=== PATIENT | female | born 1985 | race Two or more races ===

== ENCOUNTER 2017-02-11 12:31 | Emergency (ER) | payer MEDICAID ==
[~2017-02-11] VITALS: Ht 157.5 cm; Wt 62.6 kg
[2017-02-11 13:50] LABS: Urine Bacteria NONE SEEN /hpf (None Seen); Urine Blood TRACE /uL (Negative); Urine Mucus FEW (None Seen); Urine Specific Gravity 1.021 (1.001-1.035); Urine WBC 9 /hpf (0 - 5)
[2017-02-11 14:03] VITALS: BP 117/72
[2017-02-11] MEDS ORDERED: NALBUPHINE HCL 10 MG/1ml INJECTION IV ONE (14:45)
[2017-02-11] MEDS ORDERED: PROMETHAZINE HCL 25 MG/ML 1ML IV ONE (14:45)
== END 2017-02-11 15:33 | disposition home or self-care (01) ==
LOC: ER 12:31
DX: O23.43 Unspecified infection of urinary tract in pregnancy, third trimester (principal); O34.83 Maternal care for other abnormalities of pelvic organs, third trimester; O26.893 Other specified pregnancy related conditions, third trimester; N83.209 Unspecified ovarian cyst, unspecified side; Z3A.32 32 weeks gestation of pregnancy
CPT/HCPCS: 76805; 81001; 82962